=== PATIENT | female | born 1965 | race Caucasian/White ===

== ENCOUNTER → 2024-01-08 12:09 | Outpatient (REF) | payer BC, SELFPAY | LOC: HWWDC 12:09 | PROVIDERS: ATTENDING PHYSICIAN Nurse Practitioner Family | DX: Z12.31 Encounter for screening mammogram for malignant neoplasm of breast (principal) | CPT/HCPCS: 77063; 77067 ==

== ENCOUNTER → 2024-12-30 08:43 | Outpatient (REF) | payer BC, SELFPAY ==
[2024-12-30 12:24] LABS: Hematocrit 35.6 % (37.0-47.0); Hemoglobin 11.7 g/dL (12.0-16.0); Mean Corp Hgb Conc. 32.9 g/dL (33.0-37.0); Mean Corpuscular Volume 93.2 fL (81.0-99.0); Nucleated Red Blood Cells % 0 %; Platelet Count 226 10^3/uL (130-400); Red Cell Dist. Width 13.2 % (11.5-14.5)
[2024-12-30 13:18] LABS: ALT (SGPT) 28 U/L (0-35); AST (SGOT) 29 U/L (14-36); Albumin 4.7 g/dl (3.5-5.0); Alkaline Phosphatase 52 U/L (38-126); Blood Urea Nitrogen 21 mg/dl (7-17); Calcium 9.7 mg/dl (8.4-10.2); Carbon Dioxide 27 mmol/L (22-30); Chloride 103 mmol/L (98-107); Glucose 87 mg/dl (70-99); HDL Cholesterol 85 mg/dl; LDL Cholesterol, Calculated 84 mg/dl; Potassium 4.6 mmol/L (3.5-5.1); Sodium 136 mmol/L (135-145); Total Protein 7.3 g/dl (6.3-8.2); Very Low Density Lipoprotein 12 mg/dl (0-30); eGFR > 60.00
[2024-12-30 13:52] LABS: Iron 94 ug/dl (37-170)
[2024-12-30 14:02] LABS: Total Iron Binding Capacity 349 ug/dl (265-497)
[2024-12-30 17:39] LABS: Ferritin 52.2 ng/ml (11.1-264.0)
== END ==
LOC: HWLAB 08:43
PROVIDERS: ATTENDING PHYSICIAN Nurse Practitioner Family
DX: E03.9 Hypothyroidism, unspecified (principal); Z12.39 Encounter for other screening for malignant neoplasm of breast; Z12.11 Encounter for screening for malignant neoplasm of colon; Z13.31 Encounter for screening for depression; F41.9 Anxiety disorder, unspecified; E78.5 Hyperlipidemia, unspecified; M25.511 Pain in right shoulder
CPT/HCPCS: 36415; 73030; 80053; 80061; 82728; 83540; 83550; 85025

== ENCOUNTER → 2025-01-13 08:35 | Outpatient (REF) | payer BC, SELFPAY | LOC: HWCARD 08:35 | PROVIDERS: ATTENDING PHYSICIAN Nurse Practitioner Family | DX: Z01.818 Encounter for other preprocedural examination (principal) | CPT/HCPCS: 93005 ==

== ENCOUNTER → 2025-04-07 09:20 | Outpatient (REF) | payer BC, SELFPAY | LOC: HWWDC 09:20 | PROVIDERS: ATTENDING PHYSICIAN Nurse Practitioner Family | DX: Z12.31 Encounter for screening mammogram for malignant neoplasm of breast (principal) | CPT/HCPCS: 77063; 77067 ==